=== PATIENT | female | born 1990 | race Caucasian/White ===

== ENCOUNTER → 2018-10-25 | Outpatient (CLI) | payer OTHER | LOC: OD 17:03 | PROVIDERS: ATTEND Obstetrics & Gynecology | DX: O20.0 Threatened abortion (principal) | CPT/HCPCS: 36415; 84702 ==

== ENCOUNTER 2018-11-03 23:29 | Emergency (ER) | payer OTHER ==
[2018-11-04 00:04] VITALS: BP 143/100
== END 2018-11-04 02:57 | disposition left against medical advice (07) ==
LOC: ER 23:29
DX: Z53.21 Procedure and treatment not carried out due to patient leaving prior to being seen by health care provider (principal)

== ENCOUNTER 2019-08-03 16:59 | Outpatient (CLI) | payer OTHER ==
[2019-08-03 17:39] LABS: APPEARANCE,URINE CLOUDY; BILIRUBIN,URINE NEGATIVE (NEGATIVE); COLOR,URINE YELLOW; GLUCOSE, URINE NEGATIVE (NEGATIVE); KETONES,URINE NEGATIVE (NEGATIVE); LEUKOCYTE ESTERASE,URINE LARGE (NEGATIVE); NITRITE,URINE NEGATIVE (NEGATIVE); PROTEIN,URINE NEGATIVE (NEGATIVE); URINE SPECIFIC GRAVITY 1.017; UROBILINOGEN,URINE NEGATIVE mg/dL (<2.0)
[2019-08-03 18:00] LABS: URINE AMPHETAMINES SCREEN NEGATIVE; URINE BARBITURATES SCREEN NEGATIVE; URINE BENZODIAZEPINES SCREEN NEGATIVE; URINE COCAINE SCREEN NEGATIVE; URINE MARIJUANA (THC) SCREEN NEGATIVE; URINE METHADONE SCREEN NEGATIVE; URINE PHENCYCLIDINE SCREEN NEGATIVE
== END 2019-08-03 18:04 | disposition home or self-care (01) ==
LOC: LC 16:59
PROVIDERS: ATTEND Obstetrics & Gynecology Gynecology
DX: Z36.89 Encounter for other specified antenatal screening (principal); Z3A.38 38 weeks gestation of pregnancy; Z88.1 Allergy status to other antibiotic agents
CPT/HCPCS: 59025; 80307; 81005; 84112

== ENCOUNTER 2019-08-19 11:20 | Inpatient (IN) | payer OTHER ==
--- NOTE | 2019-08-19 11:25 | Non Stress Test Report ---
Non Stress Test Datetime Report Generated by CPN: 08/19/2019 11:24 DEMOGRAPHIC EGA NST: 38.3 INDICATION Indication for Study (NST) Other: provider order MONITORING Monitor Explained: Monitor Explained; Test Explained; Patient Verbalized Understanding Time on Monitor: 08/03/2019 17:21 Time off Monitor: 08/03/2019 17:41 NST Duration: 20 NST INTERVENTIONS NST Interventions: None Physician Notified NST: Dr. Perez Baldwin BABY A: [id number] BABY A Movement : Present Contraction Frequency : none FHR Baseline : 135 Accelerations : 15X15 Decelerations : None Variability : Moderate 6-25bpm NST Review: Meets Criteria for Reactive NST NST Review and Verified By : JNiebuhr,RN NST Results: Reactive NST REPORT Report Trigger: Send Report
[2019-08-19] MEDS ORDERED: RINGERS SOLUTION,LACTATED 1,000 ML IV ONE (11:41)
[2019-08-19] MEDS ORDERED: RINGERS SOLUTION,LACTATED 1,000 ML IV PRN (11:41)
[2019-08-19] MEDS ORDERED: OXYTOCIN/0.9 % SODIUM CHLORIDE 30 UNIT/500 ML RTUINJ ONE (11:47)
[2019-08-19] MEDS ORDERED: MISOPROSTOL 0.2 MG TABLET ONE (11:47)
[2019-08-19] MEDS ORDERED: LIDOCAINE 1% INJ-PF (10 MG/ML) 30 ML SDV ONE (11:47)
[2019-08-19] MEDS ORDERED: OXYTOCIN 10 UNIT/ML VIAL ONE (11:47)
[2019-08-19 12:52] LABS: APPEARANCE,URINE TURBID; BILIRUBIN,URINE NEGATIVE (NEGATIVE); COLOR,URINE AMBER; GLUCOSE, URINE NEGATIVE (NEGATIVE); KETONES,URINE NEGATIVE (NEGATIVE); LEUKOCYTE ESTERASE,URINE LARGE (NEGATIVE); NITRITE,URINE NEGATIVE (NEGATIVE); PROTEIN,URINE 30 mg/dL (NEGATIVE); URINE SPECIFIC GRAVITY 1.018; UROBILINOGEN,URINE NEGATIVE mg/dL (<2.0)
[2019-08-19 12:55] LABS: ABSOLUTE LYMPHOCYTES (AUTO) 1.7 10^3/uL (0.5-4.7); ABSOLUTE MONOCYTES (AUTO) 0.6 10^3/uL (0.1-1.4); ABSOLUTE NEUT (AUTO) 5.8 10^3/uL (1.7-8.2); BASOPHILS % (AUTO) 0.3 % (0-2); EOSINOPHILS % (AUTO) 0.4 % (0-6); HEMATOCRIT 41.5 % (36.0-47.0); HEMOGLOBIN 14.5 g/dL (12.0-15.5); LYMPHOCYTES % (AUTO) 20.7 % (13-45); MEAN CORPUSCULAR HEMOGLOBIN 32.6 pg (27.0-33.4); MEAN CORPUSCULAR HGB CONC 34.9 g/dL (32.0-36.0); MEAN CORPUSCULAR VOLUME 93 fl (80-97); MONOCYTES % (AUTO) 7.3 % (3-13); PLATELET COUNT 257 10^3/uL (150-450); RED BLOOD COUNT 4.45 10^6/uL (3.72-5.28); RED CELL DISTRIBUTION WIDTH 13.2 % (11.5-14.0); SEGMENTED NEUTROPHILS % (AUTO) 71.3 % (42-78); TOTAL CELLS COUNTED % (AUTO) 100 %; WHITE BLOOD COUNT 8.1 10^3/uL (4.0-10.5)
[2019-08-19 13:07] LABS: URINE AMPHETAMINES SCREEN NEGATIVE; URINE BARBITURATES SCREEN NEGATIVE; URINE BENZODIAZEPINES SCREEN NEGATIVE; URINE COCAINE SCREEN NEGATIVE; URINE MARIJUANA (THC) SCREEN NEGATIVE; URINE METHADONE SCREEN NEGATIVE; URINE PHENCYCLIDINE SCREEN NEGATIVE
[2019-08-19] MEDS ORDERED: PROMETHAZINE HCL INJ 25 MG/1 ML VIAL IV PRN (13:22)
[2019-08-19] MEDS ORDERED: PSEUDOEPHEDRINE HCL 30 MG TABLET PO PRN (13:22)
[2019-08-19] MEDS ORDERED: OXYTOCIN/0.9 % SODIUM CHLORIDE 30 UNIT/500 ML RTUINJ IV PRN (13:22)
[2019-08-19] MEDS ORDERED: PROMETHAZINE HCL 25 MG TABLET PO PRN (13:22)
[2019-08-19] MEDS ORDERED: PROMETHAZINE HCL 25 MG SUPP.RECT PR PRN (13:22)
[2019-08-19] MEDS ORDERED: DIPH/PERTUSS(ACELL)/TETANUS VAC/PF 0.5 ML SYR (>=10YO) IM PRN (13:22)
[2019-08-19] MEDS ORDERED: DIBUCAINE 1% OINTMENT 28 GM TP PRN (13:22)
[2019-08-19] MEDS ORDERED: DIPHENHYDRAMINE HCL 25 MG CAPSULE PO PRN (13:22)
[2019-08-19] MEDS ORDERED: MEASLES,MUMPS&RUBELLA VACC/PF 0.5 ML VIAL SUBCUT PRN (13:22)
[2019-08-19] MEDS ORDERED: MAGNESIUM HYDROXIDE SUSP 30 ML UDCUP PO PRN (13:22)
[2019-08-19] MEDS ORDERED: NA PHOS,M-B/NA PHOS,DI-BA (ADULT) 133 ML ENEMA PR PRN (13:22)
[2019-08-19] MEDS ORDERED: BENZOCAINE/MENTHOL AEROSOL SPRAY 56 ML TOP PRN (13:22)
[2019-08-19] MEDS ORDERED: ACETAMINOPHEN 325 MG TABLET PO PRN (13:22)
[2019-08-19] MEDS ORDERED: ACETAMINOPHEN WITH CODEINE #3 TABLET PO PRN ×2 (13:22)
[2019-08-19] MEDS ORDERED: ZOLPIDEM TARTRATE 5 MG TABLET PO PRN (13:22)
--- NOTE | 2019-08-19 13:40 | Admission Physical ---
Datetime Report Generated by CPN: 08/19/2019 13:40 CURRENT ADMISSION Chief Complaint: Uterine Contractions Indication for Induction: Not Applicable Admit Impression : Term, Intrauterine ; Active Labor Admit Plan: Admit to Unit; Initiate Labor Protocol ALLERGIES Medication Allergies: No Medication Allergies: amoxicillin/Rash (08/19/2019) Latex: No Latex Allergies Food Allergies: none Environmental Allergies: none OBSTETRICAL HISTORY EDC: 08/14/2019 00:00 : 4 Para: 1 SAB: 2 Livin Gestational Diabetes: No Rh Sensitization: No Incompetent Cervix: No JULIANO: No Infertility: No ART Treatment: No Uterine Anomaly: No IUGR: No Hx Previous C/S: No Macrosomia: No Hx Loss/Stillborn: No PIH: No Hx : No Placenta Previa/Abruption: No Depression/PP Depression: No PTL/PROM: No Post Hemorrhage: No Current Procedures: Ultrasound; NST Obstetrical History Comments: G1- G4- current; SEE RECORDS Alcohol: No Marijuana : No Cocaine: No Other Illicit Drugs: No Cigarettes: Never Smoker. [id number] MEDICAL HISTORY Diabetes: No Blood Transfusion: No Pulmonary Disease (Asthma, TB): No Breast Disease: No Hypertension: No Cnc Manager Surgery: No Heart Disease: No Hosp/Surgery: No Autoimmune Disorder: No Anesthetic Complications: No Kidney Disease: No Abnormal Pap Smear: No Neuro/Epilepsy: No Psychiatric Disorders: No Other Medical Diseases: No Hepatitis/Liver Disease: No Significant Family History: No Varicosities/Phlebitis: No Trauma/Violence : No Thyroid Dysfunction: No Medical History Comments: takes anxiety medication, childbirth, [id number] INFECTIOUS HISTORY Gonorrhea: No Genital Herpes: No Chlamydia: No Tuberculosis: No Syphilis: No Hepatitis: No HIV/AIDS Exposure: No Rash or Viral Illness: No HPV: No PHYSICAL EXAM General: Normal HEENT: Normal Neurologic: Normal Thyroid: Deferred Heart: Normal Lungs: Normal Breast: Deferred Back: Normal Abdomen: Normal Genitourinary Exam: Normal Extremities: Normal DTRs: Normal Pelvic Type: Adequate Vital Signs: Reviewed VAGINAL EXAM Dilatation: 5 Effacement: 80 Station: -2 Contraction Comments: q 2 MEMBRANES Membranes: Intact FETUS A EGA: 40.5 Monitoring: External US FHR- Baseline: 145 Variability: Minimal - Undetectable to <=5bpm Accelerations: 15X15 Decelerations: None FHR Category: Category I Presentation: Vertex Admit Comment: 28yo at 40+5ega presents for uterine ctx. She had a possible COVID exposure and was tested on 08/08 - negative - result is negative and n chart. She is GBS negative. She has a h/o fast labor. c/b maternal Obesity and precip labor. 1 hr GTT negative. Anticipate PLANS FOR LABOR AND DELIVERY Labor and Delivery: None Pain Management: Natural Feeding Preference: Both Benefit of Breast Feed Discussed: Yes Circumcision: N/A (Annotations: Data stored by [facility] on behalf of user) INFORMED CONSENT Informed Consent Obtained: Vaginal Delivery; Risks, Benefits and Alternatives Discussed Signature: with User ID: [email or web address]
--- NOTE | 2019-08-19 13:41 | Warning Signs in Babies ---
VOD Warning Signs Datetime Report Generated by [facility]: 08/19/2019 13:41 VOD#608 -Warning Signs in Babies: Needs to be viewed. (08/03/2019 17:22:Camila Lawrence RN)
[2019-08-19] MEDS ORDERED: IBUPROFEN 800 MG TABLET ONE (14:19)
[2019-08-19] MEDS: IBUPROFEN 800 MG TABLET PO SCH ×2 (14:20→21:37)
--- NOTE | 2019-08-19 16:33 | Delivery Summary ---
Del Sum A-C Datetime Report Generated by CPN: 08/19/2019 16:32 DELIVERY PERSONNEL DELIVERY PERSONNEL: [id number] Delivery Doctor:: Laina Meza MD Labor and Delivery Nurse:: Camila Lawrence RNsignal maintenance technician Nurse:: Aster Jacinto RN Fur Tanner/3RD PRESSMAN: Haley Ross, ST MATERNAL INFORMATION Delivery Anesthesia: None Medications After Delivery: Pitocin 30 Units in 500ml NS/D5W Delivery QBL: 155 Maternal Complications: None Provider Comments: VFI delivered in RAY presentation. No nuchal cord. Shoulders and body delivered without difficulty. Cord doubly clamped and cut and to maternal abdomen for NRP. Placenta delivered intact spontaneously. FF at U. 2nd degree perineal laceration repaired in usual fashion. Good hemostasis. Mother and baby stable upon provider leaving the room. LABOR SUMMARY EDC: 08/14/2019 00:00 No. Babies in Womb: 1 Attempted: No Labor Anesthesia: None LABOR INFORMATION Reason for Induction: Not Applicable Onset of Labor: 08/19/2019 10:00 Complete Dilatation: 08/19/2019 13:01 Oxytocin: N/A Group B Beta Strep: negative Antibiotics # of Doses: 0 Antibiotics Time of Last Dose: n/a Name of Antibiotic Given: n/a Steroids Given: None Reason Steroids Not Administered: Not Applicable MEMBRANES Membranes Rupture Method: Artificial Rupture of Membranes: 08/19/2019 12:58 Length of Rupture (hr): 0.08 Amniotic Fluid Color: Clear Amniotic Fluid Amount: Small Amniotic Fluid Odor: Normal STAGES OF LABOR Stage 1 hr: 3 Stage 1 min: 1 Stage 2 hr: 0 Stage 2 min: 2 Stage 3 hr: 0 Stage 3 min: 4 Total Time in Labor hr: 3 Total Time in Labor min: 7 VAGINAL DELIVERY Episiotomy: None Laceration #1: Perineal Laceration Extension #1: Second Degree Laceration Repair: Yes Laceration Repair Note: 2nd degree perineal laceration repaired with good hemostasis. Sponge Count Correct: Yes Sharps Count Correct: Yes CSECTION DELIVERY Primary Indication: N/A Secondary Indication: N/A CSection Incidence: N/A Labor: N/A Elective: N/A CSection Incision: N/A BABY A INFORMATION Delivery Date/Time: 08/19/2019 13:03 Method of Delivery: Vaginal Nurse Controlled Delivery: No Born in Route : No : N/A Forceps: N/A Vacuum Extraction: N/A Shoulder Dystocia : No PRESENTATION/POSITION BABY A Presentation: Cephalic Cephalic Presentation: Vertex Vertex Position: Left Occipital Anterior Breech Presentation: N/A PLACENTA INFORMATION BABY A Placenta Delivery Time : 08/19/2019 13:07 Placenta Method of Delivery: Spontaneous Placenta Status: Delivered SCORES BABY A Heart Rate 1 min: >100 bpm Resp Effort 1 min: Good Cry Reflex Irritability 1 min: Cough or Sneeze or Pulls Away Muscle Tone 1 min: Some Flexion of Extremities Color 1 min: Blue/Pale Resuscitation Effort 1 min: Tactile Stimulation SCORE 1 MIN: 7 Heart Rate 5 min: >100 bpm Resp Effort 5 min: Good Cry Reflex Irritability 5 min: Cough or Sneeze or Pulls Away Muscle Tone 5 min: Some Flexion of Extremities Color 5 min: Body [place], Extremities Blue SCORE 5 MIN: 8 INFORMATION BABY A Gestational Age at Delivery: 40.5 Gestational Status: Full Term- 39- 40.6 Weeks Infant Outcome : Liveborn Infant Condition : Stable Sex: Female IDENTIFICATION BABY A Verification Date/Time: 08/19/2019 13:24 ID Band Number: [id number] Mother's Name Verified: Yes Infant RN Verifying : B Baidy RN Additional Verifying Personnel: Izabella Chavez RN WEIGHT/LENGTH BABY A Birthweight (gm): 3743 Weight (lb): 8 Weight (oz): 4 Length (in): 20.00 Length (cm): 50.80 CORD INFORMATION BABY A No. Cord Vessels: 3 Nuchal Cord : N/A Cord Blood Taken: Yes-For Eval (Mom's Blood Type - or O+) Suction: None ASSESSMENT BABY A Infant Complications: None Physical Findings at Delivery: Bruising Infant Respirations: Appears Normal Skin to Skin: Yes Skin to Skin Time (min): 60 Brine Well Operator/ALS Called : No Care By: B Baidy RN Transferred To: Remains with Mother BABY B INFORMATION : N/A SIGNATURES Signature: Electronically signed by Laina Meza MD ([facility]) on 08/19/2019 at 13:41 with User ID: [email or web address]
[2019-08-19] MEDS ORDERED: DOCUSATE SODIUM 100 MG CAPSULE ONE (17:50)
[2019-08-19] MEDS ORDERED: FERROUS SULFATE 325 MG TABLET PO ONE (17:50)
[2019-08-19] MEDS: DOCUSATE SODIUM 100 MG CAPSULE PO SCH (17:56)
[2019-08-19] MEDS: FERROUS SULFATE 325 MG TABLET PO SCH (17:56)
[2019-08-19] MEDS: FAMOTIDINE 20 MG TABLET PO SCH (21:37)
[2019-08-20] MEDS: IBUPROFEN 800 MG TABLET PO SCH ×3 (05:27→22:43)
[2019-08-20 09:15] LABS: HEMATOCRIT 36.4 % (36.0-47.0); HEMOGLOBIN 12.5 g/dL (12.0-15.5); MEAN CORPUSCULAR HEMOGLOBIN 32.5 pg (27.0-33.4); MEAN CORPUSCULAR HGB CONC 34.3 g/dL (32.0-36.0); MEAN CORPUSCULAR VOLUME 95 fl (80-97); PLATELET COUNT 206 10^3/uL (150-450); RED BLOOD COUNT 3.84 10^6/uL (3.72-5.28); RED CELL DISTRIBUTION WIDTH 13.3 % (11.5-14.0); WHITE BLOOD COUNT 9.3 10^3/uL (4.0-10.5)
[2019-08-20] MEDS: DOCUSATE SODIUM 100 MG CAPSULE PO SCH ×2 (09:20→17:05)
[2019-08-20] MEDS: FERROUS SULFATE 325 MG TABLET PO SCH ×2 (09:20→17:05)
[2019-08-20] MEDS: SENNOSIDES/DOCUSATE 8.6-50 MG 1 EACH TABLET PO SCH (09:20)
[2019-08-20] MEDS: PRENATAL VITAMIN W DHA CAPSULE PO SCH (09:21)
[2019-08-20] MEDS: FAMOTIDINE 20 MG TABLET PO SCH ×2 (09:21→22:42)
--- NOTE | 2019-08-20 10:15 | PDOC PROGRESS REPORT ---
Subjective-OB Progress Note for:: 08/20/19 Subjective: Doing well, no c/o, breast feeding, hsb at BS, would like to go home today if baby can go, light lochia Physical Exam (OB) Vital Signs: Temp Pulse Resp BP Pulse Ox 98.4 F 85 18 130/88 H 99 08/20/19 07:45 08/20/19 07:45 08/20/19 07:45 08/20/19 07:45 08/20/19 07:45 Intake & Output 08/19/19 08/20/19 08/21/19 06:59 06:59 06:59 Intake Total 1000 480 Balance 1000 480 Weight 136.9 kg - PIH/Pre-Eclampsia Headache: Absent Epigastric Pain: No Visual Changes: No - Lochia Lochia Amount: Small 10-25 ml Lochia Color: Rubra/Red - Abdomen Description: Soft, Round Hernia Present: No Fundal Description: Firm, Midline Fundal Height: u/u - u/2 Objective-Diagnostic Laboratory: 08/20/19 08:46 08/19/19 08/19/19 08/19/19 11:35 12:25 12:25 WBC 8.1 RBC 4.45 Hgb 14.5 Hct 41.5 MCV 93 MCH 32.6 MCHC 34.9 RDW 13.2 Plt Count 257 Seg Neutrophils % 71.3 Urine Color JIMBO Urine Appearance TURBID Urine pH 6.0 Ur Specific [place] 1.018 Urine Protein 30 H Urine Glucose (UA) NEGATIVE Urine Ketones NEGATIVE Urine Blood SMALL H Urine Nitrite NEGATIVE Ur Leukocyte Esterase LARGE H Blood Type O POSITIVE Antibody Screen NEGATIVE 08/20/19 08:46 WBC 9.3 RBC 3.84 Hgb 12.5 Hct 36.4 MCV 95 MCH 32.5 MCHC 34.3 RDW 13.3 Plt Count 206 Seg Neutrophils % Urine Color Urine Appearance Urine pH Ur Specific [place] Urine Protein Urine Glucose (UA) Urine Ketones Urine Blood Urine Nitrite Ur Leukocyte Esterase Blood Type Antibody Screen Assessment and Plan(PN) - Assessment and Plan (1) Labor, precipitous, delivered Is this a current diagnosis for this admission?: Yes (2) Obstetrical laceration, second degree Is this a current diagnosis for this admission?: Yes (3) Vaginal delivery Is this a current diagnosis for this admission?: Yes (4) Obesity Qualifiers: Obesity type: due to excess calories Body mass index: unspecified BMI Is this a current diagnosis for this admission?: Yes - Time Spent with Patient Time with patient: Less than 15 minutes Medications reviewed and adjusted accordingly: Yes - Disposition Anticipated Discharge: Home Within: within 24 hours
[2019-08-21] MEDS: GLYCERIN/WITCH HAZEL LEAF 1 EACH MED..WIPE TP PRN ×2 (01:42→12:06)
[2019-08-21] MEDS: IBUPROFEN 800 MG TABLET PO SCH (06:09)
[2019-08-21 07:50] VITALS: BP 128/72
--- NOTE | 2019-08-21 09:49 | PDOC DISCHARGE SUMMARY ---
Impression - Admit/DC Date/PCP Admission Date/Primary Care Provider: 08/19/19 11:46 WILLIAMS CONTEH MD Discharge Date: 08/21/19 - Discharge Diagnosis (1) Labor, precipitous, delivered Is this a current diagnosis for this admission?: Yes (2) Obstetrical laceration, second degree Is this a current diagnosis for this admission?: Yes (3) Vaginal delivery Is this a current diagnosis for this admission?: Yes (4) Obesity Is this a current diagnosis for this admission?: Yes - Additional Information Resuscitation Status: Full Code Discharge Diet: Regular Discharge Activity: Balance Activity w/Rest, Pelvic Rest Referrals: WILLIAMS CONTEH MD [Primary Care Provider] - Prescriptions: Ibuprofen [Motrin 800 mg Tablet] 800 mg PO Q8HP PRN #60 tablet PRN Reason: For Pain Scale 3-5 Home Medications: Vit/Iron Fum/Folic AC [ Tablet] 1 tab PO DAILY 08/20/15 Esomeprazole Magnesium [Nexium 24Hr] 20 mg PO DAILY 08/03/19 Sertraline HCl [Zoloft 50 mg Tablet] 50 mg PO DAILY 08/03/19 Ibuprofen [Motrin 800 mg Tablet] 800 mg PO Q8HP PRN #60 tablet 08/21/19 HPI Reason(s) for Admission: Onset of Labor Procedures: NST Intrapartum Procedure(s): Spontaneous Vaginal Delivery Complication(s): Laceration-Perineal Laceration-Degree: 2nd Results Laboratory Results: WBC 9.3 10^3/uL (4.0-10.5) 08/20/19 08:46 RBC 3.84 10^6/uL (3.72-5.28) 08/20/19 08:46 Hgb 12.5 g/dL (12.0-15.5) 08/20/19 08:46 Hct 36.4 % (36.0-47.0) 08/20/19 08:46 MCV 95 fl (80-97) 08/20/19 08:46 MCH 32.5 pg (27.0-33.4) 08/20/19 08:46 MCHC 34.3 g/dL (32.0-36.0) 08/20/19 08:46 RDW 13.3 % (11.5-14.0) 08/20/19 08:46 Plt Count 206 10^3/uL (150-450) 08/20/19 08:46 Lymph % (Auto) 20.7 % (13-45) 08/19/19 12:25 [place] % (Auto) 7.3 % (3-13) 08/19/19 12:25 Eos % (Auto) 0.4 % (0-6) 08/19/19 12:25 Baso % (Auto) 0.3 % (0-2) 08/19/19 12:25 Absolute Neuts (auto) 5.8 10^3/uL (1.7-8.2) 08/19/19 12:25 Absolute Lymphs (auto) 1.7 10^3/uL (0.5-4.7) 08/19/19 12:25 Absolute Monos (auto) 0.6 10^3/uL (0.1-1.4) 08/19/19 12:25 Absolute Eos (auto) 0.0 10^3/uL (0.0-0.6) 08/19/19 12:25 Absolute Basos (auto) 0.0 10^3/uL (0.0-0.2) 08/19/19 12:25 Seg Neutrophils % 71.3 % (42-78) 08/19/19 12:25 Urine Color JIMBO 08/19/19 11:35 Urine Appearance TURBID 08/19/19 11:35 Urine pH 6.0 (5.0-9.0) 08/19/19 11:35 Ur Specific [place] 1.018 08/19/19 11:35 Urine Protein 30 mg/dL (NEGATIVE) H 08/19/19 11:35 Urine Glucose (UA) NEGATIVE mg/dL (NEGATIVE) 08/19/19 11:35 Urine Ketones NEGATIVE mg/dL (NEGATIVE) 08/19/19 11:35 Urine Blood SMALL (NEGATIVE) H 08/19/19 11:35 Urine Nitrite NEGATIVE (NEGATIVE) 08/19/19 11:35 Urine Bilirubin NEGATIVE (NEGATIVE) 08/19/19 11:35 Urine Urobilinogen NEGATIVE mg/dL (<2.0) 08/19/19 11:35 Ur Leukocyte Esterase LARGE (NEGATIVE) H 08/19/19 11:35 Urine Ascorbic Acid NEGATIVE (NEGATIVE) 08/19/19 11:35 Urine Opiates Screen NEGATIVE 08/19/19 11:35 Urine Methadone Screen NEGATIVE 08/19/19 11:35 Ur Barbiturates Screen NEGATIVE 08/19/19 11:35 Ur Phencyclidine Scrn NEGATIVE 08/19/19 11:35 Ur Amphetamines Screen NEGATIVE 08/19/19 11:35 U Benzodiazepines Scrn NEGATIVE 08/19/19 11:35 Urine Cocaine Screen NEGATIVE 08/19/19 11:35 U Marijuana (THC) Screen NEGATIVE 08/19/19 11:35 Blood Type O POSITIVE 08/19/19 12:25 Antibody Screen NEGATIVE 08/19/19 12:25 Plan Plan of Treatment: f/u at [facility] Time Spent: Less than 30 Minutes
[2019-08-21] MEDS: FERROUS SULFATE 325 MG TABLET PO SCH (10:07)
[2019-08-21] MEDS: DOCUSATE SODIUM 100 MG CAPSULE PO SCH (10:08)
[2019-08-21] MEDS: FAMOTIDINE 20 MG TABLET PO SCH (10:09)
[2019-08-21] MEDS: SENNOSIDES/DOCUSATE 8.6-50 MG 1 EACH TABLET PO SCH (10:09)
[2019-08-21] MEDS: PRENATAL VITAMIN W DHA CAPSULE PO SCH (10:09)
[2019-08-21] MEDS ORDERED: MEASLES,MUMPS&RUBELLA VACC/PF 0.5 ML VIAL SUBCUT PRN (12:30)
[2019-08-21] MEDS ORDERED: PROMETHAZINE HCL INJ 25 MG/1 ML VIAL IV PRN (12:30)
[2019-08-21] MEDS ORDERED: DIPH/PERTUSS(ACELL)/TETANUS VAC/PF 0.5 ML SYR (>=10YO) IM PRN (12:30)
== END 2019-08-21 13:00 | disposition home or self-care (01) | DRG 807 ==
LOC: LC 11:20 → LR 11:46 → 2S 18:00
PROVIDERS: ADMIT Student in an Organized Health Care Education/Training Program; ATTEND Student in an Organized Health Care Education/Training Program
PROC: 10E0XZZ Delivery of Products of Conception, External Approach (ICD-10-PCS; principal; 2019-08-19)
PROC: 0KQM0ZZ Repair Perineum Muscle, Open Approach (ICD-10-PCS; 2019-08-19)
PROC: 10907ZC Drainage of Amniotic Fluid, Therapeutic from Products of Conception, Via Natural or Artificial Opening (ICD-10-PCS; 2019-08-19)
DX: O62.3 Precipitate labor (principal); Z37.0 Single live birth; O70.1 Second degree perineal laceration during delivery; O99.214 Obesity complicating childbirth; E66.09 Other obesity due to excess calories; Z03.818 Encounter for observation for suspected exposure to other biological agents ruled out; Z88.1 Allergy status to other antibiotic agents; Z3A.40 40 weeks gestation of pregnancy
CPT/HCPCS: 36415; 80307; 81005; 85025; 85027; 86592; 86850; 86900; 86901; J2590; J3490